=== PATIENT | female | born 2000 | race Caucasian/White ===

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

== ENCOUNTER → 2019-01-10 09:17 | Outpatient (CLI) | payer OTHER, SELFPAY ==
[2019-01-10 11:50] LABS: HCG,Quantitative 37 mIU/mL
== END ==
PROVIDERS: Visit Provider Nurse Practitioner Obstetrics & Gynecology
DX: Z32.00 Encounter for pregnancy test, result unknown (principal)
CPT/HCPCS: 36415; 84702

== ENCOUNTER → 2019-01-19 09:38 | Outpatient (CLI) | payer OTHER, SELFPAY ==
[2019-01-19 11:23] LABS: HCG,Quantitative 3351 mIU/mL
== END ==
PROVIDERS: Visit Provider Nurse Practitioner Obstetrics & Gynecology
DX: Z32.00 Encounter for pregnancy test, result unknown (principal)
CPT/HCPCS: 36415; 84702

== ENCOUNTER → 2019-02-01 14:20 | Outpatient (CLI) | payer OTHER, SELFPAY | PROVIDERS: Visit Provider Nurse Practitioner Obstetrics & Gynecology | DX: Z34.90 Encounter for supervision of normal pregnancy, unspecified, unspecified trimester (principal) | CPT/HCPCS: 36415; 84702 ==

== ENCOUNTER → 2019-02-08 09:09 | Outpatient (CLI) | payer OTHER, SELFPAY ==
[2019-02-08 09:34] LABS: Basophils % 0.3 % (0.1-2.0); Eosinophils # 0.1 K/mm3 (0.0-0.4); Eosinophils % 1.3 % (0.1-12.0); Hematocrit 38.9 % (37.0-47.0); Hemoglobin 13.1 g/dL (12.2-16.2); Lymphocytes # 1.7 K/mm3 (0.7-4.5); Lymphocytes % 20.8 % (10-50); Mean Corpuscular HGB Conc 33.8 g/dL (31.8-35.4); Mean Corpuscular Hemoglobin 28.9 pg (27.0-31.2); Mean Corpuscular Volume 85.5 fl (81-99); Mean Platelet Volume 8.7 fl (7.4-10.4); Monocytes # 0.4 K/mm3 (0.1-1.0); Monocytes % 4.8 % (1.7-9.3); Neutrophils # 6.1 K/mm3 (1.8-7.8); Neutrophils % 72.7 % (37.0-80.0); Platelet Count 289 K/mm3 (142-424); Red Blood Count 4.55 M/mm3 (4.20-5.40); Red Cell Distribution Width 14.1 % (11.5-17.5); White Blood Count 8.3 K/mm3 (4.5-13.0)
[2019-02-09 08:19] LABS: HIV Screen 4th Generation wRfx Non Reactive (Non Reactive); Hepatitis B Surface Antigen Negative (Negative); Hepatitis C Antibody 0.2 s/co ratio (0.0-0.9)
[2019-02-09 14:57] LABS: Rapid Plasma Reagin Ab Titer Non Reactive (NonRea<1:1); Rubella Antibodies, IgG 1.06 index (Immune >0.99)
[2019-02-13 09:26] LABS: Neisseria gonorrhoeae, NAA Negative (Negative)
== END ==
PROVIDERS: Visit Provider Nurse Practitioner Obstetrics & Gynecology
DX: Z34.90 Encounter for supervision of normal pregnancy, unspecified, unspecified trimester (principal)
CPT/HCPCS: 36415; 85025; 86592; 86703; 86762; 86850; 87340; 87380; 87491; 87591; G0432

== ENCOUNTER → 2019-02-15 14:13 | Outpatient (CLI) | payer OTHER, SELFPAY ==
--- NOTE | 2019-02-15 14:14 | US_ITS ---
PROCEDURE: US OB TRANSVAGINAL CLINICAL INDICATION: us ob dates Pelvic pain COMPARISON: US OB TRANSVAGINAL from 02/13/2019 FINDINGS: An intrauterine gestational sac is present with a pole with a crown-rump length of 2.23 cm correlating to gestational age of 9 weeks 0 days. heart tones are present with an FHR of 146 bpm. Yolk sac is noted. 1.6 cm left corpus luteum cyst once again noted. IMPRESSION: Live IUP at 9 weeks 0 days Estimated due date by Ultrasound is 09/20/2019 Dictated by: Rajat Gonzales MD 02/15/2019 16:52 Electronically signed by Rajat Gonzales MD in [facility] 02/15/2019 16:52
== END ==
PROVIDERS: PCP Nurse Practitioner; Visit Provider Nurse Practitioner Obstetrics & Gynecology
DX: O26.841 Uterine size-date discrepancy, first trimester (principal)
CPT/HCPCS: 76817

== ENCOUNTER → 2019-05-08 14:08 | Outpatient (CLI) | payer OTHER, SELFPAY ==
--- NOTE | 2019-05-08 14:08 | US_ITS ---
PROCEDURE: US OB /MATERNAL DETAIL CLINICAL INDICATION: screening for chromosomal anomalies Anatomy exam COMPARISON: US OB TRANSVAGINAL from 02/15/2019 FINDINGS: Single viable intrauterine gestation. Breech position. Placenta: Anteriorplacenta grade 1. There is average amount fluid. The cervix appears satisfactory. Closed and measuring 3 cm transabdominal in length. Complete survey performed and was unremarkable on the submitted images as in PACS. No discrete anomalies identified on survey imaging by technologist. Active fetus. Three-vessel cord with satisfactory umbilical cord insertion. 4- chamber heart noted. Survey of brain & ventricles Unremarkable. Face and neck survey unremarkable. Diaphragm and chest views unremarkable. Abdomen: Both kidneys noted and unremarkable. Stomach noted and satisfactory. Spine: Spinous poorly demonstrated due to the fetus position. No gross abnormalities apparent Both arms and legs noted. Amniotic Fluid: Adequate. Maternal adnexa: No significant findings. Measurements: Average ultrasound age 20weeks 6days. Gestational Age 20weeks 6days Estimated due date by ultrasound age 0609/19/2019. Estimated weight 376g BPD = 21weeks OFD = 20 weeks 6 days HC = 20weeks 1day AC = 20weeks 5days FL = 21weeks 1day Growth Percentile= 40% Heart Rate = 134bpm Cerebellum = 21weeks 4days Humerus = 21weeks HC/AC is 1.13 CI is 0.79 FL/BPD is 0.71 FL/AC is 0.23 IMPRESSION: There is a single live fetus in breech presentation with an average ultrasound age of 20 weeks and 6 days. No obvious anomalies. The spine is poorly demonstrated due to the fetus position. All parameters correlate. Please see above for detail Dictated by: Rajat Gonzales MD 05/08/2019 15:30 Electronically signed by Rajat Gonzales MD in [facility] 05/08/2019 15:30
== END ==
PROVIDERS: PCP Nurse Practitioner; Visit Provider Nurse Practitioner Obstetrics & Gynecology
DX: Z36.0 Encounter for antenatal screening for chromosomal anomalies (principal)
CPT/HCPCS: 76811

== ENCOUNTER 2019-06-11 09:15 | Outpatient (CLI) | payer OTHER, SELFPAY ==
[2019-06-11 09:49] LABS: Glucose,Fasting 78 mg/dl (74-100)
[2019-06-11 11:50] VITALS: BP 123/84; PULSE 71; RESP 18; TEMP 36.8; O2SAT 98
[2019-06-11 12:29] LABS: Glucose 1 Hour 82 mg/dL (74-100)
== END 2019-06-11 12:10 | disposition home or self-care (01) ==
LOC: LAB 09:17 → INF 11:45
PROVIDERS: Visit Provider Nurse Practitioner Obstetrics & Gynecology
DX: Z34.90 Encounter for supervision of normal pregnancy, unspecified, unspecified trimester (principal)
CPT/HCPCS: 36415; 82951; 96372; J2790

== ENCOUNTER → 2019-08-01 09:34 | Outpatient (CLI) | payer OTHER, SELFPAY ==
--- NOTE | 2019-08-01 09:38 | US_ITS ---
PROCEDURE: US OB FOLLOW UP CLINICAL INDICATION: SGA, decreased movement Small for gestational age, decreased movement COMPARISON: US OB /MATERNAL DETAIL from 05/08/2019 FINDINGS: Single live fetus is present in cephalic presentation. The cervix is closed and measures 3 transabdominal. Average ultrasound age is 32 weeks 3 days and estimated weight is 1901 g which is 17th percentile. Following parameters are obtained: BPD 32 weeks 2 days, OFD 33 weeks 4 days, HC 32 weeks 5 days, AC 31 weeks 4 days, FL 32 weeks 6 days. All parameters correlate. The placenta is anterior in implantation and grade 2. Biophysical profile is 8 of 8. Amniotic fluid index is 12 cm. Estimated due date by ultrasound is 09/19/2019. IMPRESSION: Live IUP at 32 weeks 3 days without estimated weight of 1901 g which is 17 percentile Biophysical profile 8 of 8. NANNETTE 12 cm Dictated by: Rajat Gonzales MD 08/01/2019 16:07 Electronically signed by Rajat Gonzales MD in [facility] 08/01/2019 16:07
== END ==
PROVIDERS: PCP Family Medicine; Visit Provider Nurse Practitioner Obstetrics & Gynecology
DX: O36.5990 Maternal care for other known or suspected poor fetal growth, unspecified trimester, not applicable or unspecified (principal); O36.8190 Decreased fetal movements, unspecified trimester, not applicable or unspecified
CPT/HCPCS: 76816; 76819

== ENCOUNTER → 2019-08-16 13:56 | Outpatient (CLI) | payer OTHER, SELFPAY | PROVIDERS: Visit Provider Nurse Practitioner Obstetrics & Gynecology | DX: Z34.90 Encounter for supervision of normal pregnancy, unspecified, unspecified trimester (principal) | CPT/HCPCS: 86403 ==

== ENCOUNTER → 2019-09-11 08:58 | Outpatient (CLI) | payer OTHER, SELFPAY ==
[2019-09-11 19:59] LABS: Coronavirus 19 IgG Antibody Negative (Negative); Coronavirus 19 IgM Antibody Negative (Negative)
== END ==
PROVIDERS: Visit Provider Nurse Practitioner Obstetrics & Gynecology
DX: Z01.84 Encounter for antibody response examination (principal)
CPT/HCPCS: 36415; 86328

== ENCOUNTER 2019-09-12 04:54 | Inpatient (IN) | payer OTHER, SELFPAY ==
--- NOTE | 2019-09-10 11:40 | SUR.PREOP ---
Addendum entered by ANAHI Aparicio 09/10/19 11:41: 09/10/2019 @ 1141--- 0900 on 09/11/2019. Original Note: []--PHONE CALL MADE TO PATIENT. PATIENT UNDERSTANDS THAT LAB WORK AND COVID TESTING NEEDS TO BE COMPLETED @ [] on []. PATIENT UNDERSTANDS IF LAB WORK AND COVID-19 TESTS ARE NOT COMPLETED BY 12PM ON THAT DATE, THE SURGERY SCHEDULED WILL BE CANCELLED AND RESCHEDULED FOR ANOTHER TIME.
[2019-09-12] VITALS (9 sets, daily range): BP systolic 105–129; BP diastolic 51–74; PULSE 54–84; RESP 11–23; TEMP 36.4–36.8; O2SAT 95–100; BMI 40.4
[2019-09-12 06:24] LABS: Microscopic, Urine URINE MICROSCOPIC (MICROSCOPIC)
[2019-09-12 06:26] LABS: Appearance,Urine CLEAR (Clear); Bilirubin,Urine Negative (Negative); Blood, Urine Negative (Negative); Color,Urine YELLOW (Yellow); Glucose,Urine (UA) Negative (Negative); Ketones,Urine Negative (Negative); Leukocyte Esterase,Urine 2+ (Negative); Nitrate,Urine Negative (Negative); PH,Urine 6.5 (5.0-8.5); Protein,Urine Negative (Negative); Specific Gravity, Urine 1.025 (1.005-1.030); Urobilinogen,Urine 0.2 EU/dl (0.2)
[2019-09-12 06:32] LABS: Chloride 107 mmol/L (98-107); Potassium 3.5 mmoL/L (3.5-5.1); Sodium 138 mmol/L (136-145)
[2019-09-12 06:35] LABS: Anion Gap 14.5 mEq/L (5-15); Blood Urea Nitrogen 5 mg/dl (7-17); Carbon Dioxide 20 mmol/L (22.0-30.0); Creatinine Clearance Estimated 275 mL/min (50-200); Estimated Glomerular Filt Rate 157 ml/min (>60); GFR (African American) 190 ML/MIN (>60)
[2019-09-12 06:36] LABS: Basophils % 0.4 % (0.1-2.0); Calcium 8.8 mg/dl (8.4-10.2); Eosinophils # 0.2 K/mm3 (0.0-0.4); Eosinophils % 2.5 % (0.1-12.0); Glucose 83 mg/dl (74-100); Hematocrit 37.9 % (37.0-47.0); Hemoglobin 12.9 g/dL (12.2-16.2); Lymphocytes # 1.8 K/mm3 (0.7-4.5); Lymphocytes % 20.1 % (10-50); Mean Corpuscular HGB Conc 34.1 g/dL (31.8-35.4); Mean Corpuscular Hemoglobin 30.8 pg (27.0-31.2); Mean Corpuscular Volume 90.4 fl (81-99); Mean Platelet Volume 8.4 fl (7.4-10.4); Monocytes # 0.4 K/mm3 (0.1-1.0); Monocytes % 4.1 % (1.7-9.3); Neutrophils # 6.6 K/mm3 (1.8-7.8); Neutrophils % 72.9 % (37.0-80.0); Platelet Count 195 K/mm3 (142-424); Red Blood Count 4.19 M/mm3 (4.20-5.40); Red Cell Distribution Width 14.1 % (11.5-17.5); White Blood Count 9.1 K/mm3 (4.5-13.0)
[2019-09-12 06:43] LABS: Amphetamine/Metha Screen,Urine Negative ng/ml (<1000); Barbiturates Screen,Urine Negative ng/ml (<200)
[2019-09-12 06:44] LABS: Benzodiazepines Screen,Urine Negative ng/ml (<200)
[2019-09-12 06:45] LABS: Cannabinoid Screen,Urine Negative ng/ml (<50); Cocaine Screen,Urine Negative ng/ml (<300)
[2019-09-12 06:46] LABS: Methadone Screen,Urine Negative ng/ml (<300); Opiate Screen,Urine Negative ng/ml (<300)
[2019-09-12 06:47] LABS: Phencyclidine Screen,Urine Negative ng/ml (<25)
[2019-09-12 06:48] LABS: Bacteria,Urine 3+ /lpf; Mucus,Urine 1+ /lpf; WBC,Urine 20-50 #/hpf (0-3)
[2019-09-12 06:49] LABS: Amorphous Sediment,Urine Trace /lpf
--- NOTE | 2019-09-12 07:01 | HMH.ANESCL ---
[facility] Anesthesia Checklist - Patient Identification Patient Identification: Arm Band, Verbal (Name & ) - Structural Data Admitted From: Home Planned Operative Procedure/s: Repeat Consent for Planned Operative Procedure(s) Verified: Yes Verified Documents: Surgical Consent, History and Physical - NPO Status Verified Time NPO: 00:00 - Chart Verification Results Verified: CBC, BMP, UA - Additional verifications Patient : Yes Anesthesia Reactions: No Hx Blood Transfusions: No Blood Transfusion Reaction: Yes - Airway Assessment C-Spine Mobility Assessed: Yes TMJ Mobility Assessed: Yes Dentition: Good Dentition - Neurological Assessment Level of Consciousness: Awake, Alert, Appropriate, Follows Commands Hx Seizures: No Numbness or tingling in extremities: No - Anesthesia Plan Anesthesia Risk discussed: Yes Anesthesia Plan: Verified ASA Class: II Anesthesia Type: Spinal [facility] History I have reviewed the patient's past medical history: Yes Medical History: Reports:: Asthma Denies:: Cancer, Diabetes Mellitus Type 1, Diabetes Mellitus Type 2, MRSA, Seizures *Have you ever received a pneumonia vaccine?: No *Have you received a flu vaccine this season?: No Other Medical History: 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
[2019-09-12 07:44] LABS: Appearance,Urine/Cath CLEAR (Clear); Bilirubin,Cath Negative (Negative); Blood, Urine/Cath TRACE-I (Negative); Color,Urine/Cath YELLOW (Yellow); Glucose,Urine/Cath (UA) Negative (Negative); Ketones,Urine/Cath Negative (Negative); Leukocyte Esterase,Cath Negative (Negative); Microscopic,Cath URINE MICROSCOPIC (MICROSCOPIC); Nitrate,Cath Negative (Negative); Protein,Urine/Cath Negative (Negative); Urobilinogen,Cath 0.2 EU/dl (0.2)
--- NOTE | 2019-09-12 08:12 | HMH.OPNOTE ---
Date of procedure: 09/12/19 Pre-op Diagnosis:: Term , previous section Post-op Diagnosis:: Term , previous section Procedure performed:: Repeat lower segment transverse section Surgeon:: Robin Turner MD Ore Feeder(s):: Jade Johnson DESTINATION COORDINATOR:: Bassam Gallegos Anesthesia: spinal Estimated blood loss (mL): 600 Clinical Note:: She is a 19-year-old 2 para 1 at 39+ weeks gestational age. She is had a previous section and as a result of that was brought in for repeat section at term. Operative findings:: She delivered a liveborn female child at 7:38 AM on the morning of September 12, 2019. Baby had Apgars of 8 at 1 minute and 9 at 5 minutes. Her lower segment was extremely thin because it has only been a year since her last . Ovaries and tubes appeared normal. Operative note:: She was taken to the operating room where spinal anesthesia was found be adequate. She was prepped and draped in normal sterile fashion in the supine position with a leftward tilt. A Akers catheter was in the bladder. A Pfannenstiel skin incision was made with knife then carried through to the underlying layer of fascia with cautery. The fascia was opened in the midline with cautery and extended laterally using Conley scissors. Patrick clamps were applied to the superior aspect of the fascial incision which was tented up and the underlying rectus muscles dissected off using cautery. The [place] clamps were then applied to the inferior aspect of the fascial incision which in a similar fashion was tented up and the underlying rectus muscles dissected off using cautery. The rectus muscles were then in the midline, the peritoneum identified, and entered sharply with Metzenbaum scissors. This incision was then extended superiorly and inferiorly with cautery. We had good visualization of the bladder inferiorly. The bladder peritoneum was then opened in the midline and extended laterally using Metzenbaum scissors. A bladder flap was created digitally. Transverse incision was made through the uterine muscle to the amnion. This incision was then extended laterally using fingers traction. The amnion was entered sharply with knife. There was clear amniotic fluid. The infant's head was then delivered atraumatically. This was followed by the anterior shoulder and the rest of the 's body atraumatically. The oropharynx and nasopharynx were bulb suctioned. The infant was then handed off to Dr. Larios who assigned Apgars of 8 at 1 minute and 9 at 5 minutes. We then obtained cord blood. Using gentle traction on the cord and countertraction on the fundus I was able to easily deliver the placenta intact. It had a normal three-vessel cord. The uterus was then cleared of clots and debris . The uterus was then exteriorized in the abdominal cavity. The uterine incision was then closed using running 0 Vicryl suture in a locked fashion. A second layer of the same suture was used to imbricate the first layer. The lower uterine segment was extremely thin and I used 2-0 Vicryl suture to close a small rent here. The bladder peritoneum was then closed using running 2-0 Vicryl suture in a locked fashion. The gutters and cul-de-sac were then cleared of clots and debris . Once again hemostasis was assured. The uterus was then returned to the abdominal cavity. The peritoneum was grasped with Patricia clamps and closed using running 2-0 Vicryl suture. The rectus muscles were then reapproximated using running 0 Vicryl suture. The fascia was closed using running #1 Vicryl suture. The subcutaneous tissues were then irrigated with warm water followed by closure Darell's fascia using running 2-0 Monocryl suture. The skin was closed with shani. I then cleaned the skin with Hibiclens. Sterile dressings were applied. She tolerated the procedure well and was taken to the recovery room in excellent condition. All sponges minute and
--- NOTE | 2019-09-12 08:16 | HMH.ANESI ---
[facility] Anesthesia Record Part I Intake, IV Amount: 700 Estimated blood loss (mL): 600 Urine output (mL): 475 Blood Products used (#): none Blood Pressure: 115/60 SaO2: 96 Pulse Rate: 67 Respiratory Rate: 11 Temperature: 97.6 F Patient is:: Awake, Stable Stable to PACU at:: 08:12
--- NOTE | 2019-09-12 08:54 | HMH.PHAVTE ---
[facility] Pharmacy VTE Monitoring - Patient Demographics Admission date: 09/12/19 Report Date: 09/12/19 Time: 08:54 Allergies/Adverse Reactions: Patient Allergies loratadine [From Claritin] Allergy (Verified 09/12/19 07:43) Height: 1.55 m Weight: 97.069 kg - VTE Risk Labs: VTE Related Lab Results Hgb 12.9 g/dL (12.2-16.2) 09/12/19 05:40 Hct 37.9 % (37.0-47.0) 09/12/19 05:40 Plt Count 195 K/mm3 (142-424) 09/12/19 05:40 BUN 5 mg/dl (7-17) L 09/12/19 05:40 Creatinine 0.50 mg/dl (0.52-1.04) L 09/12/19 05:40 Estimated Creat Clear 275 mL/min (50-200) 09/12/19 05:40 - Prophylaxis VTE Prophylaxis Ordered?: Yes Types of VTE Prophylaxis: IPCS Knee High (POST OP) Location of Applied Device: Bilateral Lower Extremeties
[2019-09-12 10:05] LABS: Squamous Epithelial Ur./Cath Occasional #/hpf (0-5); WBC,Urine/Cath Occasional #/hpf (0-3)
--- NOTE | 2019-09-12 10:31 | SUR.PHASEI ---
received report from Anusha Limon RN at 0812 gave report to Jade Fernández RN in OB at 0854
[2019-09-12 12:42] LABS: Hematocrit 34.3 % (37.0-47.0)
--- NOTE | 2019-09-13 08:32 | HMH.ACPN2 ---
Internal Medicine - PN: Subj *Date: 09/13/19 *Time: 08:32 Interval history: She continues to do well. She is eating and drinking and ambulating. She is having difficulty voiding. She had her Akers catheter out last night and she has not been able to void. She did get Dilaudid in her spinal. She was extremely dizzy yesterday and quite nauseous as a result of this. Her blood pressure was also quite low as a result of the Dilaudid. She is doing much better with that today. If she cannot void we will plan to insert a Akers for a few hours and see if this helps. Exam Vital signs and Labs for Last 24 Hours: Temp Pulse Resp BP Pulse Ox 98.1 F 71 18 105/58 L 100 09/12/19 23:58 09/12/19 23:58 09/12/19 23:58 09/12/19 23:58 09/12/19 23:58 Laboratory Results - last 24 hr 09/12/19 07:30: Urine RBC 5-10, Urine WBC Occasional, Ur Squamous Epith Cells Occasional, Urine Bacteria None 09/12/19 12:30: Hgb 12.0 L, Hct 34.3 L I & O for Last 24 hours: Intake & Output 09/10/19 09/11/19 09/12/19 09/13/19 11:59 11:59 11:59 11:59 Intake Total 700 / 700 Balance 700 / 700 Weight 214 lb Microbiology Reports for the Last 24 Hours: Microbiology 09/12/19 05:05 Urine,Clean Catch Urine Culture - Preliminary NO GROWTH AFTER 24 HOURS - Constitutional no acute distress - *Routine HEENT Exam Head: Present: normocephalic Eye: Present: EOMI, PERRL ENT: Present: mucous membranes moist - *Routine Neck Exam Present: supple, full ROM Assessment and Plan (1) Previous section Current visit: Yes Status: Acute Category: Surgical Code(s): Z98.891 - History of uterine scar from previous surgery (2) delivery delivered Current visit: Yes Status: Acute Category: Medical Code(s): O82 - Encounter for delivery without indication - Assessment and plan all Dx Assessment and Plan for all problems:: She is doing well this morning. Her pain is well controlled. Her blood pressure is normal. She has not been able to void this morning. We will reinsert a catheter for the next few hours.
[2019-09-13 08:45] LABS: Hematocrit 37.7 % (37.0-47.0); Hemoglobin 12.5 g/dL (12.2-16.2)
[2019-09-13 10:16] VITALS: BP 129/74; PULSE 84; TEMP 36.5
--- NOTE | 2019-09-13 10:16 | P.PN_ITS ---
[facility] Anesthesia Record Part II Discharge Time: 08:54 Destination: Obstetric PACU nurse assessment reviewed?: Yes Patient Condition:: Good Anesthesia Complications:: None Swallowing reflex intact?: Yes Cyanosis?: No Blood Pressure: 129/74 Pulse Rate: 84 Temperature: 97.7 F Mental Status: Alert & Oriented Pain level:: 0 Nausea and/or vomitting:: None Intake, IV Amount: 0
[2019-09-13 20:30] VITALS: BP 103/70; PULSE 63; RESP 18; TEMP 36.7
[2019-09-14 03:46] VITALS: BP 107/54; PULSE 54; RESP 16; TEMP 36.7
--- NOTE | 2019-09-14 09:05 | P.DS_ITS ---
General - General Admission date:: 09/12/19 Discharge date: 09/14/19 HPI HPI: She is a 19-year-old 2 para 1 at 39 weeks gestational age she is had a previous section. She was brought in for repeat lower segment transverse section at term. Hospital Course Hospital Course: On September 12, 2019 she underwent a repeat lower segment transverse section and delivered a liveborn female child at 7:38 AM. The baby had Apgars of 8 at 1 minute and 9 at 5 minutes. She has done well and has remained afebrile with that her hospitalization. She is eating and drinking and ambulating. She is bottlefeeding. She has O Rh- blood, she received RhoGam on the day prior to discharge. She is rubella immune and was group B streptococcus negative. Her animal shelter worker is Dr. Larios. She is discharged home to follow-up with me in approximately 2 weeks time. We will continue with her vitamins and iron. We will leave her shani in for now and take them out in 2 weeks time. She was given a prescription for Percocet 5/325 number 20 tablets. Her condition on discharge is stable and improved. Objective Vital signs: Temp Pulse Resp BP Pulse Ox 98.0 F 54 L 16 107/54 L 100 09/14/19 03:46 09/14/19 03:46 09/14/19 03:46 09/14/19 03:46 09/12/19 23:58 no acute distress - *Routine HEENT Exam Head: Present: normocephalic Eye: Present: EOMI, PERRL ENT: Present: mucous membranes moist Results Labs on day of discharge: Labs from last 24 hours 09/13/19 07:28 Blood Type O Negative Antibody Screen Negative Screen Negative DS: Diagnosis - Discharge Diagnosis (1) Previous section Status: Acute (2) delivery delivered Status: Acute Discharge Plan - Patient Discharge Instructions ACTIVITY: No heavy lifting DIET: continue same diet Patient Instructions: DI for Hemorrhage, Pre-eclampsia, DI for Surgical Site Infection, [facility] Post Discharge Instructions, [facility] RH Incompatibility, Preventing the Spread of Coronavirus Discharge Instructions - Follow up Plan Follow up with: Robin Turner MD [Staff Physician] - 09/26/19 10:30 am Disposition: Home, Self-Longterm Medications: Home Medications Medication Instructions Recorded Confirmed Type vit no.95-ferrous 1 tab PO DAILY 08/02/19 09/12/19 History fumarate 28 mg-folic acid 800 mcg tablet Ferrous Sulfate 325 mg PO DAILY 09/12/19 09/12/19 History Oxycodone HCl/Acetaminophen 1 tab PO Q6H PRN #20 tab 09/14/19 Rx [Percocet 5/325mg tablet] Prescriptions/Medication Reconciliation: New Oxycodone HCl/Acetaminophen [Percocet 5/325mg tablet] 1 tab PO Q6H PRN #20 tab PRN Reason: Moderate To Severe Pain Continued vit no.95-ferrous fumarate 28 mg-folic acid 800 mcg tablet 1 tab PO DAILY Ferrous Sulfate 325 mg PO DAILY - Problem Reconciliation Problems Reviewed?: Yes
== END 2019-09-14 09:55 | disposition home or self-care (01) | DRG 788 ==
PROVIDERS: Admitting Provider Nurse Practitioner Obstetrics & Gynecology; PCP Family Medicine; Visit Provider Nurse Practitioner Obstetrics & Gynecology
PROC: 10D00Z1 Extraction of Products of Conception, Low, Open Approach (ICD-10-PCS; CPT 59514; principal; 2019-09-12 07:30)
DX: O34.211 Maternal care for low transverse scar from previous cesarean delivery (principal); Z3A.39 39 weeks gestation of pregnancy; Z37.0 Single live birth; N85.8 Other specified noninflammatory disorders of uterus; Z29.13 Encounter for prophylactic Rho(D) immune globulin
CPT/HCPCS: 59514; 36415; 59025; 80048; 80305; 81001; 85014; 85018; 85025; 85461; 86850; 87086; J2405; J2790

== ENCOUNTER → 2020-01-31 14:55 | Outpatient (CLI) | payer OTHER, SELFPAY | PROVIDERS: Visit Provider Nurse Practitioner Obstetrics & Gynecology | DX: N39.0 Urinary tract infection, site not specified (principal) | CPT/HCPCS: 87086; 87088; 87186 ==

== ENCOUNTER → 2020-02-14 12:14 | Outpatient (CLI) | payer OTHER, SELFPAY ==
[2020-02-15 14:05] LABS: Covid-19 Nasal PCR Sendout Lex NOT DETECTED
== END ==
PROVIDERS: PCP Family Medicine; Visit Provider Nurse Practitioner
DX: Z03.818 Encounter for observation for suspected exposure to other biological agents ruled out (principal)
CPT/HCPCS: U0004

== ENCOUNTER → 2020-06-30 14:55 | Outpatient (CLI) | payer OTHER, SELFPAY | PROVIDERS: PCP Family Medicine; Visit Provider Nurse Practitioner Family | DX: Z20.822 Contact with and (suspected) exposure to COVID-19 (principal) | CPT/HCPCS: U0003 ==

== ENCOUNTER → 2021-05-08 12:11 | Outpatient (CLI) | payer OTHER, SELFPAY ==
[2021-05-09 15:33] LABS: Covid-19 Nasal PCR Sendout Lex POSITIVE
== END ==
PROVIDERS: Visit Provider Nurse Practitioner
DX: U07.1 COVID-19 (principal)
CPT/HCPCS: C9803; U0004; U0005

== ENCOUNTER 2022-03-17 11:56 | Emergency (ER) | payer OTHER, SELFPAY ==
--- NOTE | 2022-03-17 11:52 | ECG_ITS ---
APPROVED REPORT Exam: Resting ECG HR:59 bpm ECG Measurements Heart Rate 59 AXES [place] 154 P 73 QRSd 86 QRS 51 QT 372 T 62 QTc 371 Conclusion SINUS BRADYCARDIA WITH MARKED SINUS ARRHYTHMIA BORDERLINE ECG UNCONFIRMED REPORT Electronically signed by : Meño Garcia MD 03/17/2022 21:52:34
[2022-03-17 11:59] VITALS: BMI 25.7
--- NOTE | 2022-03-17 12:00 | XR_ITS ---
FINAL REPORT TECHNIQUE: Chest PA & Lateral CLINICAL HISTORY: right sided chest pain, soa, dry cough COMPARISON: December 2018 FINDINGS: 2 views of the chest were performed. The heart size is normal. The mediastinum is within normal limits. There is no acute cardiopulmonary process. There are no pleural effusions. There is no pneumothorax. The bony thorax appears intact. IMPRESSION: No acute cardiopulmonary process. Reviewed, Interpreted and Dictated by Nando Perkins III, MD Transcribed by Av Haddad Authenticated and [facility]
[2022-03-17 12:03] VITALS: BP 121/77; PULSE 65; RESP 20; TEMP 36.7; O2SAT 99; BMI 25.7
[2022-03-17 12:06] VITALS: PULSE 65
[2022-03-17 12:09] LABS: Chloride 107 mmol/L (98-107); Potassium 3.8 mmoL/L (3.5-5.1); Sodium 140 mmol/L (136-145)
[2022-03-17 12:10] LABS: Basophils % 0.6 % (0.1-2.0); Eosinophils # 0.1 K/mm3 (0.0-0.4); Eosinophils % 1.2 % (0.1-12.0); Hematocrit 44.3 % (37.0-47.0); Hemoglobin 15.1 g/dL (12.2-16.2); Lymphocytes # 0.7 K/mm3 (0.7-4.5); Mean Corpuscular Hemoglobin 30.1 pg (27.0-31.2); Mean Corpuscular Volume 88.5 fl (81-99); Mean Platelet Volume 8.4 fl (7.4-10.4); Monocytes # 0.4 K/mm3 (0.1-1.0); Monocytes % 8.2 % (1.7-9.3); Neutrophils # 3.4 K/mm3 (1.8-7.8); Platelet Count 230 K/mm3 (142-424); Red Blood Count 5.01 M/mm3 (4.20-5.40); Red Cell Distribution Width 12.9 % (11.5-17.5); White Blood Count 4.6 K/mm3 (4.8-10.8)
[2022-03-17 12:12] LABS: Anion Gap 15.8 mEq/L (5-15); Blood Urea Nitrogen 13 mg/dl (7-17); Carbon Dioxide 21 mmol/L (22.0-30.0); Creatinine Clearance Estimated 122 mL/min (50-200); Estimated Glomerular Filt Rate 90 ml/min (>60); GFR (African American) 109 ML/MIN (>60)
[2022-03-17 12:13] LABS: Calcium 9.4 mg/dl (8.4-10.2); Glucose 87 mg/dl (74-100)
--- NOTE | 2022-03-17 12:19 | HMH.EDGENADL ---
Discharge Plan Disposition Patient Disposition: Home, Self-Care Condition: Good Prescriptions Prescriptions: No Action Kosher Plus Iron 30 mg iron- 1 mg tablet 1 tab PO DAILY Qty: 30 11RF norgestimate-ethinyl estradiol [Tri-Sprintec (28)] 0.18/0.215/0.25 mg-35 mcg (28) tablet 1 tab PO DAILY Qty: 28 11RF Referrals Follow up/Referrals: Idania Thakur APRN [Primary Care Provider] - See instructions Activity Restrictions/Add. Instructions Additional Instructions/Restrictions: Please follow-up with your primary care physician within the next 1 to 2 days. You will be called and notified the results of your viral panel. Please drink plenty of water and take Tylenol and ibuprofen for fever and comfort. May also utilize [id number] cough suppressant. Please return if any worsening symptoms or symptoms that do not improve. Clinical Impressions Clinical Impression: Viral infection of lower respiratory system Instructions Patient Instructions: Common Cold Print Language Print Language: French Discharge ED Provider: Arabella Jefferson Adult HPI General Chief complaint: Chest Pain Stated complaint: chest pain Time Seen by Provider: 03/17/22 12:00 Mode of Arrival: Ambulatory Source of Information: Patient Limitations: No Limitations Description of Symptoms (Recalled from ER Triage Doc. by RN): pt to ed c/o mid sternal chest pain that is worse when she takes a deep breath or moves. pt denies shortness of breath. pt denies any injury or accident. History of Present Illness HPI narrative: Jacquie is a 21 year old female presenting with substernal chest pain, non productive cough and increased congestion for 2-3 days. Patient reports coughing is present only when coughing. Patient denies any dyspnea. No known sick contacts. Denies fevers, N/V/D, abd pain or other infectious sx. No recent trauma to chest. No LE swelling/ pain. No hx of blood clots. MD complaint: chest pain, congestion Onset (ago): day(s) Related Data Previous Rx's Medication Instructions Recorded vits no.108-iron,carbonyl 1 tab PO DAILY #30 tabs 05/05/21 30 mg iron-folic acid 1 mg tablet (Kosher Plus Iron) norgestimate-ethinyl estradiol 1 tab PO DAILY #28 tabs 03/15/22 0.18 mg/0.215mg/0.25mg-35 mcg(28)tablet (Tri-Sprintec (28)) Allergies Allergy/AdvReac Type Severity Reaction Status Date / Time loratadine [From Claritin] Allergy Verified 12/10/21 09:29 [facility] Disclaimer: The information contained in this section may have been updated after the patient was seen, as this information can be updated by other users. Surgical History Hx of section Social History Smoking Status: Never smoker alcohol intake: never substance use type: denies use current occupational status: employed Travel in the last 8 weeks: None household members: significant other and children housing: house ROS Obtained: Yes All systems reviewed & no additional complaints except as documented Physical Exam General General appearance: alert and in no apparent distress Head Head exam: atraumatic and normal inspection Eye Eye exam: Present normal appearance and EOMI ENT ENT exam: Present normal exam and mucous membranes moist Neck Neck exam: Present normal inspection and full ROM Chest Chest inspection: Present normal inspection and symmetric chest wall rise Respiratory Respiratory exam: Present normal lung sounds bilaterally Cardiovascular Cardiovascular exam: Present regular rate and normal heart sounds Abdominal Exam Abdominal exam: Present soft and normal bowel sounds Extremities Exam Extremities exam: Present normal inspection and full ROM Back Exam Back exam: Present normal inspection and full ROM Neurological Exam Neurological exam: Present alert and oriented X3 Psychiatric Psych
[2022-03-17 12:27] LABS: Troponin I < 0.01 ng/ml (0.00-0.034)
[2022-03-17 14:40] VITALS: BP 121/77; PULSE 65; RESP 20; TEMP 36.7; O2SAT 98
== END 2022-03-17 13:49 | disposition home or self-care (01) ==
PROVIDERS: Emergency Provider Student in an Organized Health Care Education/Training Program; PCP Nurse Practitioner Family
DX: J22 Unspecified acute lower respiratory infection (principal)
CPT/HCPCS: 71046; 80048; 84484; 85025; 93005; 99283

== ENCOUNTER 2024-08-16 10:53 | Outpatient (CLI) | payer BC, SELFPAY ==
--- NOTE | 2024-08-16 11:00 | US_ITS ---
PROCEDURE: US TRANSVAGINAL CLINICAL INDICATION: Irregular periods COMPARISON: No exams were available for comparison FINDINGS: Transvaginal sonographic images of the pelvis were obtained. UTERUS: 8.2cm x 5.4cmx 4.1cm anteverted with a combined endometrial thickness of 6mm. The basalis of the endometrium appears irregular and could represent adenomyosis. The posterior myometrium is to thickened compared to the anterior myometrium. LEFT OVARY: 0uul8ecr6.8cm with a volume of 10.3ml. There is a follicle in the left ovary that measures 2.4 cm x 1.1 cm x 3.0 cm There are several more small peripheral follicles. RIGHT OVARY: 3cmx 6vis1pe with a volume of 7.4ml. There are multiple small peripheral follicles. The ovary appears polycystic. There is a follicle measuring 1.3 cm x 1.0 cm x 1.2 cm. Both ovaries are seen and appear polycystic. Doppler flow to both ovaries are seen. There is no fluid in the cul-de-sac. IMPRESSION: 1. Anteverted uterus normal in shape and bulky in size. The posterior aspect of the myometrium appears to be significantly thickened compared to the anterior myometrium. 2. The endometrium appears to have an irregular basalis possibly consistent with adenomyosis. 3. Both ovaries have dominant follicles. Both ovaries appear polycystic. 4. No fluid in the cul-de-sac. Dictated by: Robin Turner MD 08/17/2024 08:02 Robin Turner MD in OV 08/17/2024 08:02
== END 2024-08-16 23:59 | disposition home or self-care (01) ==
PROVIDERS: PCP Nurse Practitioner Family; Visit Provider Nurse Practitioner Obstetrics & Gynecology
DX: N92.6 Irregular menstruation, unspecified (principal)
CPT/HCPCS: 76830

== ENCOUNTER 2024-11-14 14:32 | Outpatient (CLI) | payer BC, SELFPAY ==
--- OUTSIDE RECORDS SUMMARY | 2024-11-13 05:35 | XMS_ITS ---
Author Organization [facility] Address [address] [place] [address] Care Team Providers Care Plant Maintenance Manager Name Role Phone Christiana Sesay Unavailable [phone] REASON FOR VISIT US order Encounters Encounter Location Date Provider Diagnosis [facility] [address] [place] [address] 11/13/2024 Christiana Sesay Early stage of Z34.90 Assessments Encounter Date Diagnosis (ICD Code) Assessment Notes Treatment Notes Treatment Clinical Notes Section Notes 11/13/2024 Early stage of (ICD-10 - Z34.90) Plan Of Treatment Future Test Test Name Order Date *US OB Complete Transabdominal/Vaginal 0 11/13/2024 Next Appt Details Provider Name:Christiana Sesay, 12/19/2024 01:00:00 PM, [address] [facility] [address], [place], [address], Provider Name:Christiana Sesay, 12/19/2024 01:30:00 PM, [address] [facility] [address], [place], [address], Progress Notes * Malissa STILLDOB:[birth year] (24 yo F)Acc No.[id number]:11/13/2024 Patient: Karen MULLINSAndrzejJeffMalissa :2000 A ge:24 Y S ex:Female Address:[address], [place], [address] Subjective: * Chief Complaints: * U S order Assessment: * Assessment: 1. E peggy stage of - Z34.90 (Primary) Plan: * Treatment: * true * Date: Generated for Pollo quinonez/Anthony/Vaughn on: 0 11/14/2024 02:34 PM EDT
--- OUTSIDE RECORDS SUMMARY | 2024-11-14 14:35 | XMS_ITS | Patient Health Record ---
Author Organization [facility] Address [address] [place] [address] Care Team Providers Care Info Print Press Operator Name Role Phone Christiana Sesay Unavailable [phone] Reason For Referral No Information Social History Social History Sexual History: Social Info Question Answer Notes Sexual History Had sex in the past 12 months (vaginal, oral, or anal)? Yes Drugs/Alcohol: Social Info Question Answer Notes Drugs Have you used drugs other than those for medical reasons in the past 12 months? No Alcohol Screen Did you have a drink containing alcohol in the past year? Yes Points 0 Interpretation Negative Tobacco Use: Social Info Question Answer Notes Tobacco Use/Smoking Are you a former smoker Tobacco use other than smoking: Are you an other tobac co user? No Encounters Encounter Location Date Provider Diagnosis [facility] [address] [place] [address] 11/13/2024 Christiana Cardenaslani Early stage of Z34.90 Assessments Encounter Date Diagnosis (ICD Code) Assessment Notes Treatment Notes Treatment Clinical Notes Section Notes 11/13/2024 Early stage of (ICD-10 - Z34.90) Plan Of Treatment Future Test Test Name Order Date *US OB Complete Transabdominal/Vaginal 0 11/13/2024 Next Appt Details Provider Name:Chritsiana Cardeanslani, 12/19/2024 01:00:00 PM, [address], [place], [address], Provider Name:Christiana Sesay, 12/19/2024 01:30:00 PM, [address], [place], [address], Insurance Providers Payer Name Payer Address Payer Phone Subscriber Number Group Number Insured Name Patient Relationship to Insured Coverage Start Date Coverage End Date Brigitte HOLGUIN [address] [place] [address] [id number] Malissa Dhillon Self - patient is the insured
--- OUTSIDE RECORDS SUMMARY | 2024-11-14 14:35 | XMS_ITS | Clinical Summary ---
[facility] Organization [facility] Address [address] [place] [address] Care Team Providers Care Instrument Worker Name Role Phone Elva Saldana PA-C Primary Care Provide r Allergies Active Allergy Reactions Criticality Noted Date Comments Celecoxib GI Intolerance 09/23/2022 Loratadine Hives 07/29/2022 Medications Tri-Sprintec 0.18/0.215/0.25 MG-35 MCG per tablet 08/28/2022 Active albuterol sulfate HFA 108 (90 Base) MCG/ACT inhalerIndicatio ns:Asthma, unspecified asthma severity, unspecified whether complicated, unspecified whether persistent Inhale 2 puffs Every 4 (Four) Hours As Needed for Wheezing. 18 g 05/23/2023 Active hydrOXYzine (ATARAX) 25 MG tabletIndication s:Fear of flying Take 1 tablet by mouth 3 (Three) Times a Day As Needed for Anxiety. 20 tablet 02/29/2024 Active ALPRAZolam (XANAX) 0.5 MG tabletIndication s:Fear of flying Take 30 minutes prior to flight. May take a second dose if anxiety persists. 5 tablet 03/12/2024 Active Active Problems Problem Noted Date Diagnosed Date Tobacco use 05/23/2023 Asthma Tobacco dependence Assessment & Plan (07/29/2022 9:44 AM EDT): The patient is not interested in tobacco cessation at this time. I counseled her to let me know if she would like assistance with smoking cessation in the future. Immunizations Immunization Administration Dates Next Due Covid-19 (Pfizer) Hendrix Cap Monovalent 04/22/2021 DTaP, Unspecified 07/02/2003, 1,1999,1999,1999 Hep B / HiB 06/29/2000,1999,1999 IPV 07/02/2003, 0,1999,1999 MMR 07/02/2003,10/27/2000 PEDS-Pneumococcal Conjugate (PCV7) 11/28/2000,,03/16/2000 Varicella 06/29/2000 Family History Medical History Relation Name Comments No Known Problems Father No Known Problems Mother Relation Name Status Comments Father Mother Social History Tobacco Use Types Packs/Day Years Used Date Smoking Tobacco: Every Day Cigarettes 1 5.6 Started: 2019 Smokeless Tobacco: Never Alcohol Use Standard Drinks/Week Comments Yes 0 (1 standard drink = 0.6 oz pur e alcohol) occ PHQ-2 Answer Date Recorded Retired PHQ-9: Brief Depression Severity Measure Score 0 07/29/2022 PHQ-2 Answer Date Recorded Retired PHQ-9: Brief Depression Severity Measure Score 0 05/23/2023 Comments No Sex and Gender Information Value Date Recorded Sex Assigned at Not on file Legal Sex Female 4:10 PM EDT Gender Identity Not on file Sexual Orientation Not on file Last Filed Vital Signs Vital Sign Reading Time Taken Comments Blood Pressure 128/94 02/29/2024 10:25 AM EST Pulse 60 02/29/2024 10:25 AM EST Temperature 36.5 C (97.7 F) 11/21/2023 10:09 AM EDT Respiratory Rate - - Oxygen Saturation 98% 02/29/2024 10: 25 AM EST Inhaled Oxygen Concentration - - Weight 88.4 kg (194 lb 12.8 oz) 024 10:25 AM EST Height 154.9 cm (5' 0.98 ) 02/29/2024 1 0:25 AM EST Body Mass Index 36.83 02/29/2024 10:25 AM EST Plan of Treatment Health Maintenance Due Date Last Done Comments Annual Gynecologic Pelvic an d Breast Exam 1999 HPV VACCINES (1 - 3-dose series) 06/14/2014 Pneumococcal Vaccine 0-49 (1 of 2 - PCV) 06/14/2018 11/28/2000, 06/29/2000, 03/16/2000 TDAP/TD VACCINES (1 - Tdap) 06/14/2018 PAP SMEAR 06/14/2020 ANNUAL PHYSICAL 07/29/2022 HEPATITIS C SCREENING 07/29/2022 COVID-19 Vaccine (2 - 2023- season) 12/11/202303/2022 INFLUENZA VACCINE 01/09/2025 Insurance A [employer] [address] PPO Member Subscriber Plan / Payer (Ef fective 2023-Present) Name:Malissa Dhillon Relation to Subscriber:Child Name:PEREZ GAYTAN Date of :1977 (Home) Address: [facility] [address] Payer ID:[id number] (NAIC) Type:Not on file Address: [facility] [id number] [place] [id number] Care Teams Instrument Worker Relationship Specialty Start Date End Date Elva Saldana PA-C [address] [place] [address] PCP - General Physician Drum Straightener 11/21/23
== END 2024-11-14 23:59 | disposition home or self-care (01) ==
LOC: LAB 14:32
PROVIDERS: Visit Provider Nurse Practitioner Obstetrics & Gynecology
DX: Z34.90 Encounter for supervision of normal pregnancy, unspecified, unspecified trimester (principal); N92.6 Irregular menstruation, unspecified
CPT/HCPCS: 36415; 84144; 84702